=== PATIENT | female | born 1995 | race American Indian/Alaskan Native ===

== ENCOUNTER 2018-01-29 20:10 | Emergency (ER) | payer MEDICAID ==
[2018-01-29 21:09] LABS: CHLORIDE,CL 105 mmol/L (101-111); SODIUM,NA 137 mmol/L (135-145)
[2018-01-29] MEDS ORDERED: Sodium Chloride 0.9% 1,000 ML IV ONE (21:18)
[2018-01-29] MEDS ORDERED: Ketorolac 30 MG/ML SDV IVPUSH ONE (21:18)
[2018-01-29] MEDS ORDERED: Ondansetron 4 MG/2 ML SDV IV ONE (21:18)
--- NOTE | 2018-01-29 21:48 | EDM.PDOC ---
ED HPI GENERAL MEDICAL PROBLEM - General Chief Complaint: Abdominal Pain Stated Complaint: KIDNEY PAIN [id number] Time Seen by Provider: 01/29/18 21:30 Source of Information: Reports: Patient History Limitations: Reports: No Limitations - History of Present Illness INITIAL COMMENTS - FREE TEXT/NARRATIVE: C/O left flank pain this am through out day worse at times. Pain gone now. Slight nausea. Hx kidney stones 2 years ago. No fever Onset: Today Left Flank Pain Score (Numeric/FACES): 6 - Related Data Allergies Allergy/AdvReac Type Severity Reaction Status Date / Time cephalexin monohydrate Allergy Rash Verified 05/27/15 00:15 [From Keflex] Past Medical History - Past Health History Medical/Surgical History: Denies Medical/Surgical History HEENT History: Reports: Impaired Vision Genitourinary History: Reports: Renal Calculus - Past Surgical History GI Surgical History: Reports: Cholecystectomy Social & Family History - Tobacco Use Smoking Status *Q: Current Every Day Smoker Years of Tobacco use: 10 Packs/Tins Daily: 0.5 Second Hand Smoke Exposure: Yes - Caffeine Use Caffeine Use: Reports: Coffee - Recreational Drug Use Recreational Drug Use: No ED ROS GENERAL - Review of Systems Review Of Systems: ROS reveals no pertinent complaints other than HPI. ED EXAM, RENAL/ - Physical Exam Exam: See Below Exam Limited By: No Limitations General Appearance: Alert, No Apparent Distress Ears: Normal External Exam Nose: Normal Inspection Throat/Mouth: Normal Inspection Head: Atraumatic, Normocephalic Neck: Normal Inspection Respiratory/Chest: No Respiratory Distress, Lungs Clear, Normal Breath Sounds Cardiovascular: Normal Peripheral Pulses, Regular Rate, Rhythm GI/Abdominal: Normal Bowel Sounds, Soft, Non-Tender Back Exam: CVA Tenderness (L). No: CVA Tenderness (R) Extremities: Normal Inspection Neurological: Alert, Oriented, Normal Cognition Psychiatric: Normal Affect, Normal Mood Skin Exam: Warm, Dry, Intact, Other (healed scarring multiple horizontal on bilateral inner forearms) Course - Vital Signs Last Recorded V/S: Last Vital Signs Temp 98.0 F 01/29/18 22:12 Pulse 67 01/29/18 22:12 Resp 16 01/29/18 22:12 BP 131/66 01/29/18 22:12 Pulse Ox 98 01/29/18 22:12 - Orders/Labs/Meds Orders: Active Orders 24 hr Category Date Time Status HCG QUALITATIVE,URINE [URCHEM] Stat Lab 01/29/18 20:37 Ordered UA W/MICROSCOPIC [URIN] Stat Lab 01/29/18 20:37 Ordered Labs: Laboratory Tests 01/29/18 01/29/18 01/29/18 Range/Units 20:36 20:36 20:37 WBC 14.0 H (5.0-10.0) 10^3/uL RBC 4.95 (4.2-5.4) 10^6/uL Hgb 15.2 D (12.0-16.0) g/dL Hct 44.6 (37.0-47.0) % MCV 90.1 (80-100) fL MCH 30.7 (27.0-34.0) pg MCHC 34.1 (33.0-35.0) g/dL Plt Count 363 (150-450) 10^3/uL Neut % (Auto) 70.8 (42.2-75.2) % Lymph % (Auto) 22.0 (20.5-50.1) % [place] % (Auto) 6.1 (2-8) % Eos % (Auto) 1.0 (1.0-3.0) % Baso % (Auto) 0.1 (0.0-1.0) % Sodium 137 (135-145) mmol/L Potassium 3.3 L (3.6-5.0) mmol/L Chloride 105 (101-111) mmol/L Carbon Dioxide 24.0 (21.0-31.0) mmol/L Anion Gap 11.3 BUN 11 (7-18) mg/dL Creatinine 0.7 (0.6-1.3) mg/dL Est Cr Clr Drug Dosing 102.51 mL/min Estimated GFR (MDRD) > 60 BUN/Creatinine Ratio 15.71 Glucose 114 H (74-105) mg/dL Calcium 9.4 (8.4-10.2) mg/dl Total Bilirubin 1.1 H (0.2-1.0) mg/dL AST 27 (10-42) IU/L ALT 38 (10-60) IU/L Alkaline Phosphatase 70 (42-121) IU/L Total Protein 8.2 (6.7-8.2) g/dl Albumin 4.2 (3.2-5.5) g/dl Globulin 4.0 Albumin/Globulin Ratio 1.05 Urine Color Yellow (YELLOW) Urine Appearance Clear (CLEAR) Urine pH 6.0 (5.0-9.0) Ur Specific [place] >= 1.030 (1.005-1.030) Urine Protein 30 H (NEGATIVE) Urine Glucose (UA) Negative (NEGATIVE) Urine Ketones Negative (NEGATIVE) Urine Occult Blood Large H (NEGATIVE) Urine Nitrite Negative (NEGATIVE) Urine Bilirubin Small H (NEGATIVE) Urine Urobilinogen 0.2 (0.2-1.0) mg/dL Ur Leukocyte Esterase Negative (NEGATIVE) Urine RBC 75-100 H /HPF Urine WBC 0-5 (0-5/HPF) /HPF Ur Epithelial Cells Moderate H /HPF Urine Bacteria Few (0-FEW/HPF) /HPF Urine Mucus Few H /LPF Urine HCG, Qual 01/29/18 Range/Units 20:37 WBC (5.0-10.0) 10^3/uL RBC (4.2-5.4) 10^6/uL Hgb (12.0-16.0) g/dL Hct (37.0-47.0) % MCV (80-100) fL MCH (27.0-34.0) pg MCHC (33.0-35.0) g/dL Plt Count (150-450) 10^3/uL Neut % (Auto) (42.2-75.2) % Lymph % (Auto) (20.5-50.1) % [place] % (Auto) (2-8) % Eos % (Auto) (1.0-3.0) % Baso % (Auto) (0.0-1.0) % Sodium (135-145) mmol/L Potassium (3.6-5.0) mmol/L Chloride (101-111) mmol/L Carbon Dioxide (21.0-31.0) mmol/L Anion Gap BUN (7-18) mg/dL Creatinine (0.6-1.3) mg/dL Est Cr Clr Drug Dosing mL/min Estimated GFR (MDRD) BUN/Creatinine Ratio Glucose (74-105) mg/dL Calcium (8.4-10.2) mg/dl Total Bilirubin (0.2-1.0) mg/dL AST (10-42) IU/L ALT (10-60) IU/L Alkaline Phosphatase (42-121) IU/L Total Protein (6.7-8.2) g/dl Albumin (3.2-5.5) g/dl Globulin Albumin/Globulin Ratio Urine Color (YELLOW) Urine Appearance (CLEAR) Urine pH (5.0-9.0) Ur Specific [place] (1.005-1.030) Urine Protein (NEGATIVE) Urine Glucose (UA) (NEGATIVE) Urine Ketones (NEGATIVE) Urine Occult Blood (NEGATIVE) Urine Nitrite (NEGATIVE) Urine Bilirubin (NEGATIVE) Urine Urobilinogen (0.2-1.0) mg/dL Ur Leukocyte Esterase (NEGATIVE) Urine RBC /HPF Urine WBC (0-5/HPF) /HPF Ur Epithelial Cells /HPF Urine Bacteria (0-FEW/HPF) /HPF Urine Mucus /LPF Urine HCG, Qual Negative Meds: Medications Discontinued Medications Generic Name Dose Route Start Last Admin Trade Name Freq PRN Reason Stop Dose Admin Ciprofloxacin 500 mg 01/29/18 21:53 01/29/18 22:07 Ciprofloxacin Hcl PO 01/29/18 21:54 500 mg ONETIME ONE Administration Sodium Chloride 1,000 mls @ 999 mls/hr 01/29/18 21:18 01/29/18 21:33 Normal Saline IV 01/29/18 22:18 999 mls/hr .BOLUS ONE Administration Ketorolac Tromethamine 30 mg 01/29/18 21:18 01/29/18 22:08 Toradol IVPUSH 01/29/18 21:19 Not Given ONETIME ONE Ondansetron HCl 4 mg 01/29/18 21:18 01/29/18 21:34 Zofran IV 01/29/18 21:19 4 mg ONETIME ONE Administration Tamsulosin HCl 0.4 mg 01/29/18 21:57 01/29/18 22:08 Flomax PO 01/29/18 21:58 0.4 mg ONETIME ONE Administration Departure - Departure Time of Disposition: 22:00 Disposition: Home, Self-Care 01 Condition: Good Clinical Impression: Renal calculus, left - Discharge Information Instructions: Renal Colic, [id number] Referrals: PCP,None [Primary Care Provider] - Forms: ED Department Discharge Additional Instructions: increase fluid intake cipro 500mg one twice daily for 3 days flomax 0.4 mg one daily for 5 days follow up in clinic Sunday to recheck - My Orders Last 24 Hours: My Active Orders 01/29/18 20:37 HCG QUALITATIVE,URINE [URCHEM] Stat UA W/MICROSCOPIC [URIN] Stat - Assessment/Plan Last 24 Hours: My Active Orders 01/29/18 20:37 HCG QUALITATIVE,URINE [URCHEM] Stat UA W/MICROSCOPIC [URIN] Stat
[2018-01-29] MEDS ORDERED: Ciprofloxacin 500 MG Tab PO ONE (21:53)
[2018-01-29] MEDS ORDERED: Tamsulosin 0.4 MG Cap.ER PO ONE (21:57)
[2018-01-29 22:18] VITALS: BP 131/66
== END 2018-01-29 22:16 | disposition home or self-care (01) ==
LOC: DL.ED 20:10
DX: N13.2 Hydronephrosis with renal and ureteral calculous obstruction (principal); F17.210 Nicotine dependence, cigarettes, uncomplicated; Z88.1 Allergy status to other antibiotic agents
CPT/HCPCS: 36415; 74176; 80053; 81001; 81025; 85025; 96361; 96374; 99284; A9270-GY; J2405; J7030

== ENCOUNTER 2022-10-29 11:48 | Emergency (ER) | payer BC, MEDICAID ==
[2022-10-29] MEDS ORDERED: Sulfamethoxazole/Trimethoprim 800-160 MG Tab PO ONE (11:49)
[2022-10-29 12:01] VITALS: BP 141/91; PULSE 96
[2022-10-29] MEDS ORDERED: Lidocaine 1% 10 ML MDV INJECT ONE (12:04)
[2022-10-29] MEDS ORDERED: Lidocaine 1% 10 ML MDV ONE (12:05)
[2022-10-29] MEDS ORDERED: Bacitracin Oint 1 GM U/D Packet ONE (12:28)
[2022-10-29] MEDS ORDERED: Bacitracin Oint 1 GM U/D Packet TOP ONE (12:32)
[2022-10-29] MEDS ORDERED: Sulfamethoxazole/Trimethoprim 800-160 MG Tab ONE (12:39)
== END 2022-10-29 12:33 | disposition home or self-care (01) ==
LOC: DL.ED 11:48
DX: S60.454A Superficial foreign body of right ring finger, initial encounter (principal); L03.011 Cellulitis of right finger; Z88.1 Allergy status to other antibiotic agents; W45.8XXA Other foreign body or object entering through skin, initial encounter
CPT/HCPCS: 10060; 87070; 87077; 87186; 99283; A9270

== ENCOUNTER 2023-01-02 11:32 | Emergency (ER) | payer MEDICAID ==
[2023-01-02 11:44] VITALS: BP 115/69; PULSE 75
[2023-01-02 12:01] LABS: AMPHETAMINES,URINE POSITIVE (NEGATIVE); BARBITURATES,URINE NEGATIVE (NEGATIVE); BENZODIAZEPINE,URINE NEGATIVE (NEGATIVE); MDMA (ECSTASY), URINE POSITIVE (NEGATIVE); METHADONE,URINE NEGATIVE (NEGATIVE); METHAMPHETAMINES,URINE POSITIVE (NEGATIVE); OPIATES,URINE NEGATIVE (NEGATIVE); OXYCODONE,URINE NEGATIVE (NEGATIVE); PHENCYCLIDINE,URINE NEGATIVE (NEGATIVE); TCA,URINE NEGATIVE (NEGATIVE)
== END 2023-01-02 12:36 ==
LOC: DL.ED 11:32
DX: F12.10 Cannabis abuse, uncomplicated (principal); F14.10 Cocaine abuse, uncomplicated; F15.10 Other stimulant abuse, uncomplicated; Z88.1 Allergy status to other antibiotic agents; Z72.0 Tobacco use
CPT/HCPCS: 80305-QW; 81001; 81025; 87086; 99284